=== PATIENT | male | born 1935 | race Caucasian/White ===

== ENCOUNTER 2020-01-26 08:25 | Emergency (ER) | payer MEDICARE, OTHER ==
[2020-01-26] MEDS ORDERED: Sodium Chloride 0.9% 10 ML Syringe FLUSH PRN (08:35)
[2020-01-26] MEDS ORDERED: Pantoprazole 40 MG Vial IVPUSH ONE (08:35)
[2020-01-26] MEDS ORDERED: Famotidine 20 MG/2 ML SDV IVPUSH ONE (08:35)
--- NOTE | 2020-01-26 08:35 | EDM.PDOC ---
ED HPI GENERAL MEDICAL PROBLEM - General Chief Complaint: General Stated Complaint: CONSTIPATION Time Seen by Provider: 01/26/20 08:29 Source of Information: Reports: Patient, Old Records ([facility] chart/EMR) History Limitations: Reports: No Limitations - History of Present Illness INITIAL COMMENTS - FREE TEXT/NARRATIVE: Patient was brought to the emergency room via private automobile by his for evaluation of a 3-day history of progressive constipation, including 6/10 initially bilateral lower quadrant and then diffuse generalized abdominal cramping. The patient did take OTC Ex-Lax and a stool softener on 01/22 with a normal bowel movement later that evening/shortly thereafter. Since that time, however, he has had some progressive anorexia, persistent constipation and only very small bowel movements on a daily basis. He did take a repeat dose of Ex- Lax yesterday however no medications for his symptoms this morning. No recent history of heartburn, nausea/emesis, diarrhea, melena, gross hematochezia, or any food intolerance, including fatty foods, etc., however note anorexia as above with no breakfast this morning. He did take his morning medications. The patient denies any chest pain/pressure, heart flutter, dizziness, orthostasis, orthopnea, diaphoresis, paresthesias, recent decreased exercise tolerance, or any other anginal-type symptoms. The patient also denies any recent fever, cough, wheezing, dyspnea, etc.. He does also complain of some nonspecific dysuria during the last 2 weeks with no gross hematuria, colic, or other UTI symptoms. Onset: Gradual Onset Date: 01/23/20 Duration: Constant, Getting Worse Location: Reports: Abdomen, Generalized. Denies: Head, Face, Neck, Chest, Back, Pelvis, Upper Extremity, Left, Upper Extremity, Right, Lower Extremity, Left, Lower Extremity, Right, Radiates to Quality: Reports: Ache, Stabbing Severity: Moderate Improves with: Reports: None Worsens with: Reports: None Context: Reports: Other (As above). Denies: Sick Contact, Trauma Associated Symptoms: Reports: Loss of Appetite. Denies: Confusion, Chest Pain, Cough, Diaphoresis, Fever/Chills, Headaches, Malaise, Nausea/Vomiting, Rash, Seizure, Shortness of Breath, Syncope, Weakness Abdominal Pain Score (Numeric/FACES): 6 - Related Data Allergies Allergy/AdvReac Type Severity Reaction Status Date / Time No Known Allergies Allergy Verified 01/26/20 08:35 Home Meds: Home Meds Amoxicillin/Potassium Clav [Augmentin 875-125 Tablet] 1 each PO BIDMEALS #20 tablet 01/26/20 [Rx] Aspirin [Adult Aspirin Regimen] 81 mg PO DAILY 01/26/20 [History] Cholecalciferol (Vitamin D3) [Vitamin D3] 250 mcg PO DAILY 01/26/20 [History] Ezetimibe [Zetia] 10 mg PO DAILY 01/26/20 [History] Irbesartan [Avapro] 150 mg PO DAILY 01/26/20 [History] Levothyroxine Sodium [Synthroid] 25 mcg PO DAILY 01/26/20 [History] Magnesium Oxide 400 mg PO QPM #30 tablet 01/26/20 [Rx] Mecobalamin [B12 Active] 1,000 mcg PO DAILY 01/26/20 [History] Vit C/Ascorb Sod/Multivit-Min [Emergen-C 500 mg Chewable Tab] 500 mg PO DAILY 01/26/20 [History] metroNIDAZOLE [Flagyl] 500 mg PO Q8H #30 tab 01/26/20 [Rx] Past Medical History HEENT History: Reports: Cataract, Hard of Hearing, Impaired Vision. Denies: Allergic Rhinitis, Glaucoma, Macular Degeneration, Otitis Media, Retinal Detachment Other HEENT History: Patient does not wear reading glasses. 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 Cardiovascular History: Reports: High Cholesterol, Hypertension. Denies: Afib, Aneurysm, Arrhythmia, Blood Clots/VTE/DVT, CAD, Cardiomyopathy, Heart Failure, Heart Murmur, ND, PVD, Syncope Respiratory History: Reports: Intubation, Previous. Denies: Asthma, Bronchitis, Recurrent, COPD, Intubation, Difficult, PE, Pneumonia, Recurrent, Pneumothorax, Sleep Apnea, TB Gastrointestinal History: Reports: Chronic Constipation, GERD, Other (See Belo w). Denies: Celiac Disease, Cholelithiasis, Chronic Diarrhea, Colon Polyp, Diverticulosis, Fecal Incontinence, Gastritis, GI Bleed, Hepatitis, Hiatal Hernia, Inflammatory Bowel Disease, Irritable Bowel Syndrome, Jaundice, Pancreatitis, PUD Other Gastrointestinal History: Umbilical hernia. Genitourinary History: Reports: BPH, Prostate Disorder, Other (See Below). Denies: Acute Renal Failure, Chronic Renal Insuffiency, Renal Calculus, Retention, Urinary, STD, Urinary Incontinence, UTI, Recurrent Other Genitourinary History: BPH with recent progressive PSA elevation during the last 3 years. Musculoskeletal History: Reports: Arthritis, Back Pain, Chronic, Neck Pain, Chronic, Osteoarthritis, Other (See Below). Denies: Amputation, Fracture, Gout, Osteoporosis, RA, SLE Other Musculoskeletal History: Mild scoliosis. Neurological History: Reports: Headaches, Chronic. Denies: Alzheimers Disease, Cerebral Aneurysms, Concussion, CVA, Head Trauma, Migraines, MS, Neuropathy, Peripheral, Parkinson's, Seizure, TIA Psychiatric History: Reports: Addiction, Anxiety, Depression, Other (See Below). Denies: Abuse, Victim of, ADD, ADHD, Psych Hospitalization(s), PTSD, Suicide Attempt, Suicidal Ideation Other Psychiatric History: History of alcohol abuse as below with no treatment required. Endocrine/Metabolic History: Reports: Hypothyroidism. Denies: Diabetes, Type I, Diabetes, Type II, Diabetes Mellitus, Type 3c, IDDM Hematologic History: Reports: None. Denies: Anemia, Blood Transfusion(s), Iron Deficiency Immunologic History: Denies: AIDS, HIV, SLE Oncologic (Cancer) History: Reports: Other (See Below). Denies: Colon, Hodgkin's Lymphoma, Lymphoma, Non-Hodgkin's Lymphoma, Squamous Cell Carcinoma Other Oncologic History: Right-sided renal cancer with nephrectomy as below with no radiation, chemotherapy, etc.. Recurrent unknown type of skin cancers. Dermatologic History: Reports: None. Denies: Eczema, Psoriasis - Infectious Disease History Infectious Disease History: Reports: Measles, Mumps. Denies: C-Difficile, Chicken Pox (Uncertain), Meningitis, Mononucleosis, MRSA, Rheumatic Fever, Rubella, Scarlet Fever, Shingles, TB, VRE - Past Surgical History Head Surgeries/Procedures: Reports: None HEENT Surgical History: Reports: Adenoidectomy, Cataract Surgery, Oral Surgery, Tonsillectomy, Other (See Below). Denies: Eye Surgery, Laser Surgery, LASIK, Myringotomy w Tube(s), Naso-Sinus Surgery Other HEENT Surgeries/Procedures: Tonsillectomy and adenoidectomy at about age 18. Bilateral cataract surgery in about 2013. Cardiovascular Surgical History: Reports: None. Denies: Varicose Respiratory Surgical History: Reports: None. Denies: Thoracentesis GI Surgical History: Reports: Appendectomy, Other (See Below). Denies: Cholecystectomy, Colonoscopy, EGD, Hernia, Abdominal, Hernia, Inguinal, Hernia Repair/Other, Polypectomy Other GI Surgeries/Procedures: Appendectomy at age 13. Flexible sigmoidoscopy in the 1990s. Male Surgical History: Reports: None. Denies: Circumcision, Prostate Biopsy, TURP-Transurethral Resection of Prostate, Vasectomy Endocrine Surgical History: Reports: None. Denies: Thyroid Biopsy Neurological Surgical History: Denies: C-Spine, Discectomy, Laminectomy, Lumbar Spine, Sacral Spine, Spinal Fusion, Thoracic Spine, Vertebroplasty Musculoskeletal Surgical History: Reports: None. Denies: Arthroscopic Procedure, Carpal Tunnel, Ganglion Cyst, Joint Replacement, ORIF, Shoulder Surgery Oncologic Surgical History: Reports: Other (See Below) Other Oncologic Surgeries/Procedures: Excision of multiple unknown type of skin cancers. Dermatological Surgical History: Reports: Skin Biopsy, Other (See Below) Other Dermatological Surgeries/Procedures: Skin biopsies for skin cancer as above. - Past Imaging History Past Imaging History: Reports: Carotid US (01/12/2017), CAT Scan (CT of the left leg and lumbar spine on 07/23/2017.), Stress Testing (Negative Cardiolite stress test on 08/18/2010 with ejection fraction of 72%.) Social & Family History - Tobacco Use Tobacco Use Status *Q: Never Tobacco User Tobacco Use Within Last Twelve Months: No Used Tobacco, but Quit: No Smoking Cessation Information Provided To Patient: No Second Hand Smoke Exposure: No Second Hand Smoke Education Provided: No - Caffeine Use Caffeine Use: Reports: Coffee (2 cups/week). Denies: Energy Drinks, Soda, Tea - Alcohol Use Alcohol Use History: Yes Days Per Week of Alcohol Use: 0 Number of Drinks Per Day: 0 Number of Drinks Per Day Comment: History of alcohol abuse between ages 17 and 39. Total Drinks Per Week: 0 Alcohol Use in Last Twelve Months: No - Recreational Drug Use Recreational Drug Use: No Drug Use in Last 12 Months: No Recreational Drug Type: Denies: Amphetamines (Speed), Cocaine, Heroin, Inhalants (Glues, Solvents, Aerosols), LSD (Acid), Marijuana/Hashish, Methamphetamine, Morphine, Oxycodone - Living Situation & Occupation Living situation: Reports: ( at age 16. 2 children), with Family () Occupation: Retired (Retired [employer] at age 61.) ED ROS GENERAL - Review of Systems Review Of Systems: Comprehensive ROS is negative, except as noted in HPI. ED EXAM, GENERAL - Physical Exam Exam: See Below Exam Limited By: No Limitations General Appearance: Alert, WD/WN, No Apparent Distress Eye Exam: Bilateral Eye: EOMI, Normal Inspection (No nystagmus), PERRL Ears: Normal External Exam, Normal Canal, Normal TMs, Hearing Loss (Mild bilateral presbycusis) Nose: Normal Inspection, Normal Mucosa, No Blood Throat/Mouth: Normal Inspection, Normal Lips, Normal Teeth (Occasional missing teeth with no caries), Normal Gums, Normal Oropharynx, Normal Voice, No Airway Compromise. No: Dysphagia, Perioral Cyanosis Head: Atraumatic, Normocephalic. No: Facial Swelling, Facial Tenderness, Sinus Tenderness Neck: Supple, Non-Tender, Full Range of Motion, Carotid Bruit (Mild bilateral carotid bruits). No: Lymphadenopathy (L), Lymphadenopathy (R), Thyromegaly Respiratory/Chest: No Respiratory Distress, Lungs Clear, Normal Breath Sounds, No Accessory Muscle Use, Chest Non-Tender. No: Pleural Rub, Retractions Cardiovascular: Normal Peripheral Pulses, Regular Rate, Rhythm, No Edema, No Gallop, No JVD, No Murmur, No Rub. No: Gallop/S3, Gallop/S4, Friction Rub Peripheral Pulses: 2+: Radial (L), Radial (R), Dorsalis Pedis (L), Dorsalis Pedis (R) GI/Abdominal: No Organomegaly, No Abnormal Bruit, No Mass, Distended (Borderline), Tender (Mild to moderate left lower quadrant palpation pain), Abnormal Bowel Sounds (Mild diffuse increased bowel sounds nonhigh-pitched in nature), Hernia (1 cm nonincarcerated umbilical hernia). No: Guarding, Rigid, Rebound (Male) Exam: Deferred Rectal (Males) Exam: BPH (Moderate to severe), Heme - Stool, Hemorrhoids (Grade 2 internal/external hemorrhoids). No: Black Stool, Bloody Stool, Fecal Impaction, Mass, Perirectal Abscess, Prostate Nodule (However moderate to severe BPH with exam difficult secondary to rectal stenosis), Rectal Fissure, Tenderness (No Puneet space tenderness) Back Exam: Full Range of Motion, Other (Mild scoliosis). No: CVA Tenderness (R), Muscle Spasm, Paraspinal Tenderness, Vertebral Tenderness Extremities: Normal Inspection, Normal Range of Motion, Non-Tender, No Pedal Edema, Normal Capillary Refill. No: Rajwinder's Sign Neurological: Alert, Oriented, CN II-XII Intact, Normal Cognition, Normal Gait, Normal Reflexes (Negative Babinski's), No Motor/Sensory Deficits Psychiatric: Normal Affect, Normal Mood Skin Exam: Warm, Dry, Intact, Normal Color, No Rash. No: Diaphoretic, Ecchymosis, Petechiae, Wound/Incision Course - Vital Signs Last Recorded V/S: Last Vital Signs Temp 36.8 C 01/26/20 08:26 Pulse 67 01/26/20 10:18 Resp 16 01/26/20 10:18 BP 132/76 01/26/20 10:18 Pulse Ox 98 01/26/20 10:18 Vital Signs - 24 hr 01/26/20 01/26/20 01/26/20 08:26 08:50 09:05 Temperature [ 36.8 C Temporal] Pulse, 71 68 68 Peripheral [ Pulse Oximetry] Respiratory 18 16 16 Rate Blood Pressure 165/88 H 137/81 128/80 [Left Upper Arm ] O2 Sat by Pulse 97 97 98 Oximetry 01/26/20 10:18 Temperature [ Temporal] Pulse, 67 Peripheral [ Pulse Oximetry] Respiratory 16 Rate Blood Pressure 132/76 [Left Upper Arm ] O2 Sat by Pulse 98 Oximetry - Orders/Labs/Meds Orders: Active Orders 24 hr Category Date Time Status Peripheral IV Care [RC] . DIRECTED Care 01/26/20 08:36 Active Nothing Per Oral Diet [DIET] Diet 01/26/20 Breakfast Active Abdomen Series w Chest 1V [CR] Stat Exams 01/26/20 08:35 Taken CULTURE URINE [RM] Stat Lab 01/26/20 09:40 Received Sodium Chloride 0.9% [Saline Flush] Med 01/26/20 08:35 Active 10 ml FLUSH ASDIRECTED PRN Obtain Past Medical Record [OM.PC] Urgent Oth 01/26/20 08:35 Active Peripheral IV Insertion Adult [OM.PC] Stat Oth 01/26/20 08:35 Ordered Resuscitation Status Stat Resus Stat 10/26/20 08:35 Ordered Medication Orders Sodium Chloride (Saline Flush) 10 ml FLUSH ASDIRECTED PRN PRN Reason: Keep Vein Open Last Admin: 01/26/20 09:00 Dose: 10 ml Documented by: DEANN Labs: Laboratory Tests 01/26/20 01/26/20 01/26/20 Range/Units 08:50 08:50 08:50 WBC 5.3 (4.0-10.2) K/uL RBC 4.91 (4.33-5.41) M/uL Hgb 15.5 (13.1-16.8) g/dL Hct 44.9 (39.0-49.0) % MCV 91.4 (84.0-98.0) fL MCH 31.6 (28.2-33.3) pg MCHC 34.5 (31.7-36.0) g/dL RDW 12.0 (11.2-14.1) % Plt Count 196 (150-350) K/uL Neut % (Auto) 69.9 (45.0-80.0) % Lymph % (Auto) 19.2 (10.0-50.0) % Edmunds % (Auto) 9.7 (2.0-14.0) % Eos % (Auto) 0.8 (0.0-5.0) % Baso % (Auto) 0.4 (0.0-2.0) % Neut # (Auto) 3.68 (1.40-7.00) K/uL Lymph # (Auto) 1.01 (0.50-3.50) K/uL Edmunds # (Auto) 0.51 (0.00-1.00) K/uL Eos # (Auto) 0.04 (0.00-0.50) K/uL Baso # (Auto) 0.02 (0.00-0.20) K/uL PT 10.9 (9.5-12.0) SEC INR 1.1 APTT 26.7 (24.5-32.8) SEC Sodium (136-145) mmol/L Potassium (3.5-5.1) mmol/L Chloride (98-107) mmol/L Carbon Dioxide (21.0-32.0) mmol/L BUN (7-18) mg/dL Creatinine (0.51-1.17) mg/dL Est Cr Clr Drug Dosing Estimated GFR (MDRD) mL/min Glucose (74-106) mg/dL Lactic Acid (0.4-2.0) mmol/L Uric Acid (2.6-7.2) mg/dL Calcium (8.5-10.1) mg/dL Magnesium (1.8-2.4) mg/dL Total Bilirubin (0.2-1.0) mg/dL AST (15-37) U/L ALT (12-78) U/L Alkaline Phosphatase (46-116) IU/L Total Protein (6.4-8.2) g/dL Albumin (3.4-5.0) g/dL Amylase 62 (25-115) U/L Lipase (73-393) U/L Specimen Type Urine Color Urine Appearance Urine pH (5.0-9.0) Ur Specific Mandan (1.005-1.030) Urine Protein (NEGATIVE) mg/dL Urine Glucose (UA) (NEGATIVE) mg/dL Urine Ketones (NEGATIVE) mg/dL Urine Occult Blood (NEGATIVE) Urine Nitrite (NEGATIVE) Urine Bilirubin (NEGATIVE) Urine Urobilinogen (0.2-1.0) E.U./dL Ur Leukocyte Esterase (NEGATIVE) Urine RBC /HPF Urine WBC /HPF Ur Epithelial Cells /LPF Urine Bacteria (NONE TO FEW) /HPF 01/26/20 01/26/20 01/26/20 Range/Units 08:50 08:50 09:40 WBC (4.0-10.2) K/uL RBC (4.33-5.41) M/uL Hgb (13.1-16.8) g/dL Hct (39.0-49.0) % MCV (84.0-98.0) fL MCH (28.2-33.3) pg MCHC (31.7-36.0) g/dL RDW (11.2-14.1) % Plt Count (150-350) K/uL Neut % (Auto) (45.0-80.0) % Lymph % (Auto) (10.0-50.0) % Edmunds % (Auto) (2.0-14.0) % Eos % (Auto) (0.0-5.0) % Baso % (Auto) (0.0-2.0) % Neut # (Auto) (1.40-7.00) K/uL Lymph # (Auto) (0.50-3.50) K/uL Edmunds # (Auto) (0.00-1.00) K/uL Eos # (Auto) (0.00-0.50) K/uL Baso # (Auto) (0.00-0.20) K/uL PT (9.5-12.0) SEC INR APTT (24.5-32.8) SEC Sodium 133 L (136-145) mmol/L Potassium 4.3 (3.5-5.1) mmol/L Chloride 97 L (98-107) mmol/L Carbon Dioxide 25.2 (21.0-32.0) mmol/L BUN 16 (7-18) mg/dL Creatinine 1.19 H (0.51-1.17) mg/dL Est Cr Clr Drug Dosing TNP Estimated GFR (MDRD) 58 mL/min Glucose 104 (74-106) mg/dL Lactic Acid 0.8 (0.4-2.0) mmol/L Uric Acid 5.6 (2.6-7.2) mg/dL Calcium 9.2 (8.5-10.1) mg/dL Magnesium 1.9 (1.8-2.4) mg/dL Total Bilirubin 0.8 (0.2-1.0) mg/dL AST 29 (15-37) U/L ALT 35 (12-78) U/L Alkaline Phosphatase 59 (46-116) IU/L Total Protein 7.3 (6.4-8.2) g/dL Albumin 3.8 (3.4-5.0) g/dL Amylase (25-115) U/L Lipase 101 (73-393) U/L Specimen Type Urinvoid Urine Color Yellow Urine Appearance Clear Urine pH 5.5 (5.0-9.0) Ur Specific Mandan 1.015 (1.005-1.030) Urine Protein Negative (NEGATIVE) mg/dL Urine Glucose (UA) Negative (NEGATIVE) mg/dL Urine Ketones Trace H (NEGATIVE) mg/dL Urine Occult Blood Negative (NEGATIVE) Urine Nitrite Negative (NEGATIVE) Urine Bilirubin Negative (NEGATIVE) Urine Urobilinogen 0.2 (0.2-1.0) E.U./dL Ur Leukocyte Esterase Negative (NEGATIVE) Urine RBC 0-5 /HPF Urine WBC 0-5 /HPF Ur Epithelial Cells Rare /LPF Urine Bacteria Few (NONE TO FEW) /HPF Urine specimen set up for culture and sensitivity Microbiology 01/26/20 08:45 Stool Occult Blood (CHANTELLE) - Final Stool / Feces NEGATIVE OCCULT BLOOD REFERENCE RANGE: NEGATIVE Meds: Medications Generic Name Dose Route Start Last Admin Trade Name Freq PRN Reason Stop Dose Admin Sodium Chloride 10 ml 01/26/20 08:35 01/26/20 09:00 Saline Flush FLUSH 10 ml ASDIRECTED PRN Administration Keep Vein Open Discontinued Medications Generic Name Dose Route Start Last Admin Trade Name Freq PRN Reason Stop Dose Admin Famotidine 40 mg 01/26/20 08:35 01/26/20 08:57 Pepcid IVPUSH 01/26/20 08:36 40 mg ONETIME ONE Administration Ceftriaxone Sodium 1 gm/ 100 mls @ 200 mls/hr 01/26/20 08:53 01/26/20 08:58 Sodium Chloride IV 01/26/20 09:22 200 mls/hr ONETIME ONE Administration Magnesium Citrate 0 ml 01/26/20 09:30 01/26/20 10:07 Citrate Of Magnesia PO 01/26/20 09:31 296 ml ONETIME ONE Administration Pantoprazole Sodium 40 mg 01/26/20 08:35 01/26/20 08:58 Protonix Iv IVPUSH 01/26/20 08:36 40 mg ONETIME ONE Administration Polyethylene Glycol 17 gm 01/26/20 09:30 01/26/20 10:07 Miralax PO 01/26/20 09:31 17 gm ONETIME ONE Administration - Radiology Interpretation Free Text/Narrative:: Acute abdominal x-ray shows mild aortic valve calcification and prominence of the proximal aortic arch, however no cardiomegaly, CHF, pulmonary infiltrates, pneumothorax, etc. Moderate diffuse stool noted with mildly increased nonspecific bowel gaseous pattern with no evidence of fluid levels, ileus, or free air. Moderate osteoarthritic change noted including in his back with some scoliosis and moderate coxarthrosis bilaterally. Multiple surgical clips noted on the right side consistent with previous right-sided nephrectomy. Departure - Departure Time of Disposition: 10:35 Disposition: Home, Self-Care 01 Condition: Good Clinical Impression: Hyponatremia, Renal insufficiency BPH (benign prostatic hyperplasia) Qualifiers: Lower urinary tract symptom presence: symptoms present Lower urinary tract symptom detail: urinary frequency Qualified Code(s): N40.1 - Benign prostatic hyperplasia with lower urinary tract symptoms Hypertension Qualifiers: Hypertension type: essential hypertension Qualified Code(s): I10 - Essential (primary) hypertension Hyperlipidemia Qualifiers: Hyperlipidemia type: unspecified Qualified Code(s): E78.5 - Hyperlipidemia, unspecified Osteoarthritis Qualifiers: Osteoarthritis location: multiple joints Osteoarthritis type: primary Qualified Code(s): M89.49 - Other hypertrophic osteoarthropathy, multiple sites Abdominal pain Qualifiers: Abdominal location: left lower quadrant Qualified Code(s): R10.32 - Left lower quadrant pain - Discharge Information *PRESCRIPTION DRUG MONITORING PROGRAM REVIEWED*: Not Applicable *COPY OF PRESCRIPTION DRUG MONITORING REPORT IN PATIENT NANDO: Not Applicable Prescriptions: Amoxicillin/Potassium Clav [Augmentin 875-125 Tablet] 1 each PO BIDMEALS #20 tablet metroNIDAZOLE [Flagyl] 500 mg PO Q8H #30 tab Magnesium Oxide 400 mg PO QPM #30 tablet Instructions: High-Fiber Diet, Constipation, Adult, [id number], Abdominal Pain, Adult, [id number], Diverticulosis Referrals: Viviana Chavarria PA [Primary Care Provider] - Forms: ED Department Discharge Additional Instructions: 1. Followup with your regular provider in 10-14 days as directed for reevaluation and recommended CBC, comprehensive metabolic panel, BNP, troponin I and magnesium level. Bring these discharge instructions with you to that visit with discussion of your abdominal pain and prostate disorder as below at that time. 2. [place] diet including encouragement of oral fluids such as sports drinks, etc. for 24-48 hours as directed. Advance to high-fiber, heart healthy, div erticulosis diet as discussed thereafter as tolerated. 3. Discuss further work-up of your chronic constipation and abdominal pain, including possible initial screening colonoscopy 4. Discuss further work-up for your prostate with PSA elevation including possible prostate biopsies 5. [place] diet including encouragement of oral fluids such as sports drinks, etc. for 24-48 hours as directed. Advance to regular diet as tolerated thereafter. 6. Immediately after this visit verify that your cellular telephone's voicemail has been activated and is empty. Also verify that your home telephone's an [employer] machine is operating properly and has space to receive messages. Note that it is sometimes necessary for us to be able to contact you at a later date to discuss your medical care. 7. Please remember that we are ALWAYS here for you and want to answer any questions you may have. Feel free to call the hospital any time and we call you back KURT. 8. Strict compliance with all medications including OTC magnesium oxide, etc. as discussed. Sepsis Event Note (ED) - Focused Exam Vital Signs: Vital Signs Temp Pulse Resp BP Pulse Ox 01/26/20 10:18 67 16 132/76 98 01/26/20 09:05 68 16 128/80 98 01/26/20 08:50 68 16 137/81 97 01/26/20 08:26 36.8 C 71 18 165/88 H 97 - Problem List & Annotations (1) Abdominal pain SNOMED Code(s): 26417666 Code(s): R10.9 - UNSPECIFIED ABDOMINAL PAIN Status: Acute Priority: High Onset Date: ~01/16/20 Annotation/Comment:: Progressive abdominal pain as above with moderate left lower quadrant abdominal pain by palpation likely secondary to his chronic constipation and/or possible diverticulosis with developing diverticulitis. Patient is afebrile with no leukocytosis. MiraLAX and magnesium citrate were given prior to patient's discharge. IV Rocephin and high-dose IV Protonix and Pepcid was given as GI prophylaxis with continuation of oral Augmentin and Flagyl on an outpatient basis. Dietary information was provided. Further work-up and close observation by his regular provider as per discharge instructions. He did have a distant flexible sigmoidoscopy in the as above with no initial screening colonoscopy to this point. No family history of colonic polyps or colon cancer. Note patient's current age. He has apparently been noncompliant with his previous magnesium oxide therapy during the last week with medication compliance strongly encouraged. Qualifiers: Abdominal location: left lower quadrant Qualified Code(s): R10.32 - Left lower quadrant pain (2) BPH (benign prostatic hyperplasia) SNOMED Code(s): 337555720 Code(s): N40.0 - BENIGN PROSTATIC HYPERPLASIA WITHOUT LOWER URINRY TRACT SYMP Status: Chronic Priority: High Annotation/Comment:: Note history of urinary frequency without evidence of significant UTI. By patient history he has had some progressive PSA elevation during the last 3 years with no prostate biopsy to this point. Prostate biopsy, urology referral, etc. may be advisable with this to be further discussed with his regular provider at follow-up. Note history of right-sided renal cancer with consideration of urine cytologies, etc. Qualifiers: Lower urinary tract symptom presence: symptoms present Lower urinary tract symptom detail: urinary frequency Qualified Code(s): N40.1 - Benign prostatic hyperplasia with lower urinary tract symptoms; R35.0 - Frequency of micturition (3) Hyperlipidemia SNOMED Code(s): 47568276 Code(s): E78.5 - HYPERLIPIDEMIA, UNSPECIFIED Status: Chronic Priority: Medium Annotation/Comment:: Currently under therapy. Qualifiers: Hyperlipidemia type: unspecified Qualified Code(s): E78.5 - Hyperlipidemia, unspecified (4) Hypertension SNOMED Code(s): 34361695 Code(s): I10 - ESSENTIAL (PRIMARY) HYPERTENSION Status: Chronic Priority: Medium Annotation/Comment:: Initially elevated in the emergency room secondary to discomfort, however improved prior to discharge without medical therapy. Continue to observe closely by his regular provider. Qualifiers: Hypertension type: essential hypertension Qualified Code(s): I10 - Essential (primary) hypertension (5) Hyponatremia SNOMED Code(s): 68780878 Code(s): E87.1 - HYPO-OSMOLALITY AND HYPONATREMIA Status: Acute Priority: Medium Onset Date: 01/26/20 Annotation/Comment:: Observe for now. No clinical evidence of CHF. (6) Osteoarthritis SNOMED Code(s): 198771337 Code(s): M19.90 - UNSPECIFIED OSTEOARTHRITIS, UNSPECIFIED SITE Status: Chronic Priority: Medium Annotation/Comment:: Stable by history. Qualifiers: Osteoarthritis location: multiple joints Osteoarthritis type: primary Qualified Code(s): M89.49 - Other hypertrophic osteoarthropathy, multiple sites (7) Renal insufficiency SNOMED Code(s): 896690879, 482731592 Code(s): N28.9 - DISORDER OF KIDNEY AND URETER, UNSPECIFIED Status: Acute Priority: Medium Onset Date: 01/26/20 Annotation/Comment:: Borderline renal insufficiency likely secondary to his age and previous right-sided nephrectomy. Continue to observe closely by his regular provider. - Problem List Review Problem List Initiated/Reviewed/Updated: Yes - My Orders Last 24 Hours: My Active Orders 01/26/20 Breakfast Nothing Per Oral Diet [DIET] 01/26/20 08:35 Abdomen Series w Chest 1V [CR] Stat Sodium Chloride 0.9% [Saline Flush] 10 ml FLUSH ASDIRECTED PRN Obtain Past Medical Record [OM.PC] Urgent Peripheral IV Insertion Adult [OM.PC] Stat Resuscitation Status Stat 01/26/20 08:36 Peripheral IV Care [RC] . DIRECTED 01/26/20 09:40 CULTURE URINE [RM] Stat - Assessment/Plan Last 24 Hours: My Active Orders 01/26/20 Breakfast Nothing Per Oral Diet [DIET] 01/26/20 08:35 Abdomen Series w Chest 1V [CR] Stat Sodium Chloride 0.9% [Saline Flush] 10 ml FLUSH ASDIRECTED PRN Obtain Past Medical Record [OM.PC] Urgent Peripheral IV Insertion Adult [OM.PC] Stat Resuscitation Status Stat 01/26/20 08:36 Peripheral IV Care [RC] . DIRECTED 01/26/20 09:40 CULTURE URINE [RM] Stat Assessment:: As above Plan: As above. Extensive precautions were given to the patient and his , who are in agreement with the treatment plan. See Patient Instructions for further treatment and plan.
[2020-01-26] MEDS ORDERED: cefTRIAXone 1 GM in Sodium Chloride 0.9% 100 ML IV ONE (08:53)
[2020-01-26 09:16] LABS: CHLORIDE,CL 97 mmol/L (98-107); SODIUM,NA 133 mmol/L (136-145)
[2020-01-26] MEDS ORDERED: Magnesium Citrate Solution 296 ML Bottle PO ONE (09:30)
[2020-01-26] MEDS ORDERED: Polyethylene Glycol 3350 Powder 17 GM Packet PO ONE (09:30)
[2020-01-26 09:42] LABS: PTT,PARTIAL THROMBOPLSTIN TIME 26.7 SEC (24.5-32.8)
== END 2020-01-26 10:35 | disposition home or self-care (01) ==
LOC: LL.ED 08:25
DX: R10.32 Left lower quadrant pain (principal); M41.9 Scoliosis, unspecified; E03.9 Hypothyroidism, unspecified; K42.9 Umbilical hernia without obstruction or gangrene; K64.1 Second degree hemorrhoids; N40.1 Benign prostatic hyperplasia with lower urinary tract symptoms; M89.49 Other hypertrophic osteoarthropathy, multiple sites; E78.5 Hyperlipidemia, unspecified; I10 Essential (primary) hypertension; E87.1 Hypo-osmolality and hyponatremia; N28.9 Disorder of kidney and ureter, unspecified; Z79.82 Long term (current) use of aspirin; Z79.899 Other long term (current) drug therapy
CPT/HCPCS: 36415; 74022; 80053; 81001; 82150; 82272; 83605; 83690; 83735; 84550; 85025; 85610; 85730; 87086; 96365; 96375; 99283; A9270; C9113; J0696; J3490; 99282

== ENCOUNTER 2020-02-12 10:18 | Day surgery (SDC) | payer MEDICARE, OTHER ==
[~2020-02-12 10:18] MED LIST: Lactated Ringers 1,000 ML IV SCH; Sodium Chloride 0.9% 10 ML Syringe FLUSH PRN
[2020-02-12] MEDS ORDERED: Propofol 200 MG/20 ML SDV ONE ×2 (10:50→11:50)
--- NOTE | 2020-02-12 11:34 | PCM.HPR ---
H & P Addendum review - H & P Addendum Review Date of Original H & P: 02/02/20 Date Reviewed: 02/12/20 Time Reviewed: 11:34 Patient was Examined: No Changes
--- NOTE | 2020-02-12 12:17 | PCM.OPNOTE ---
- General Post-Op/Procedure Note Date of Surgery/Procedure: 02/12/20 Operative Procedure(s): Colonoscopy with polypectomy Findings: 2 small polyps in Cecum Sig tics Pre Op Diagnosis: Abn Ct scan Post-Op Diagnosis: Same Anesthesia Technique: MAC Primary Surgeon: Michael Romero Anesthesia Provider: Heidy Christie EBL in mLs: 0 Complications: None Condition: Good
--- NOTE | 2020-02-12 13:09 | OR ---
Date of Procedure: 02/12/2020 PREOPERATIVE DIAGNOSIS: Recent abdominal pain with abnormal CT of the abdomen. POSTOPERATIVE DIAGNOSES: 1. Cecal polyps. 2. Sigmoid diverticulosis. PROCEDURES: Colonoscopy with polypectomy. ANESTHESIA: IV sedation. PROCEDURE: The patient was brought to the procedure room where he was placed on the left side and IV sedation administered. Digital rectal exam was performed which was normal other than a large prostate. The scope was advanced to the level of the cecum without difficulty. Cecal position was confirmed by identifying the ileocecal valve. Appendiceal orifice was not clearly identified. Prep was good and surfaces were well visualized in the cecum. He has 2 small polyps measuring 4 mm in diameter that were removed by biopsy forceps and sent as 1 specimen. The ascending, transverse, and descending colon were normal. Sigmoid colon has multiple large diverticula present. There is no evidence of ongoing diverticulitis. The rectum was normal and retroflexion was normal. Air was removed and the scope withdrawn. The patient tolerated the procedure well and returned to Recovery in stable condition. The patient will be notified of the pathology report when it returns. No further colonoscopies are necessary due to age. DAVE LIZ MD /[id number]
== END 2020-02-12 13:55 | disposition home or self-care (01) ==
LOC: LL.SDS 10:18
PROVIDERS: ATTEND Surgery
DX: D12.0 Benign neoplasm of cecum (principal); K57.30 Diverticulosis of large intestine without perforation or abscess without bleeding; K59.09 Other constipation; N40.0 Benign prostatic hyperplasia without lower urinary tract symptoms; E03.9 Hypothyroidism, unspecified; Z79.890 Hormone replacement therapy; Z85.528 Personal history of other malignant neoplasm of kidney; Z90.5 Acquired absence of kidney; Z01.812 Encounter for preprocedural laboratory examination; Z20.828 Contact with and (suspected) exposure to other viral communicable diseases; Z79.899 Other long term (current) drug therapy; Z79.82 Long term (current) use of aspirin
CPT/HCPCS: 00811; 88305; J2704; J7120; U0002

== ENCOUNTER 2020-02-19 12:47 | Day surgery (SDC) | payer MEDICARE, OTHER ==
[2020-02-19] MEDS ORDERED: Midazolam 1 MG/ML 2 ML SDV ONE ×2 (14:36→14:45)
[2020-02-19] MEDS ORDERED: Propofol 200 MG/20 ML SDV ONE (14:36)
--- NOTE | 2020-02-19 14:42 | PCM.PN ---
- General Info Date of Service: 02/19/20 - Review of Systems Systems Review Comment:: 84-year-old male referred for EGD. He has a history of abdominal bloating and early satiety. He feels a full pressure sensation in his upper abdomen. His recent colonoscopy was nondiagnostic for the symptoms. He is medically stable to proceed today. His recent history and physical is reviewed and no significant changes are noted. I have discussed the proposed EGD with the patient and he agrees to proceed excepting risks. - Patient Data Vitals - Most Recent: Last Vital Signs Temp 98.2 F 02/19/20 13:51 Pulse 99 02/19/20 13:51 Resp 60 H 02/19/20 13:51 BP 152/88 H 02/19/20 13:51 Pulse Ox 99 02/19/20 13:51 Weight - Most Recent: 79.379 kg Med Orders - Current: Current Medications Lactated Ringer's (Ringers, Lactated) 1,000 mls @ 125 mls/hr IV ASDIRECTED JESSE Last Admin: 02/19/20 13:49 Dose: 125 mls/hr Documented by: Sodium Chloride (Saline Flush) 10 ml FLUSH ASDIRECTED PRN PRN Reason: Keep Vein Open Discontinued Medications Midazolam HCl (Versed 1 Mg/Ml) Confirm Administered Dose 2 mg .ROUTE .STK-MED ONE Stop: 02/19/20 14:37 Propofol (Diprivan 20 Ml) Confirm Administered Dose 200 mg .ROUTE .STK-MED ONE Stop: 02/19/20 14:37 Sepsis Event Note - Focused Exam Vital Signs: Vital Signs Temp Pulse Resp BP Pulse Ox 02/19/20 13:51 98.2 F 99 60 H 152/88 H 99 - Problem List Review Problem List Initiated/Reviewed/Updated: Yes - Assessment Assessment:: Abdominal bloating - Plan Plan:: EGD
[2020-02-19] MEDS ORDERED: Glycopyrrolate 0.2 MG/ML SDV ONE (14:45)
--- NOTE | 2020-02-19 15:03 | PCM.OPNOTE ---
- General Post-Op/Procedure Note Date of Surgery/Procedure: 02/19/20 Operative Procedure(s): EGD with Biopsy Findings: Normal appearing EGD Pre Op Diagnosis: Abdominal Bloating Post-Op Diagnosis: Normal EGD Anesthesia Technique: MAC Primary Surgeon: Waqas Mendoza Pathology: Biopsies of Antrum and Proximal Stomach EBL in mLs: 3 Complications: None Condition: Good
--- NOTE | 2020-02-19 15:40 | OR ---
Date of Procedure: 02/19/2020 PREOPERATIVE DIAGNOSIS: Abdominal bloating. POSTOPERATIVE DIAGNOSIS: Normal upper endoscopy. OPERATION PERFORMED: Esophagogastroduodenoscopy with biopsy. INDICATIONS FOR SURGERY: This 84-year-old male has been having some symptoms of upper abdominal bloating. Recent colonoscopy was nondiagnostic for these symptoms. He is referred for upper endoscopy. FINDINGS: Structures viewed during upper endoscopy appeared normal. There was no visible signs of inflammation, ulcers, tumors, or strictures seen. DESCRIPTION OF PROCEDURE: The patient was taken to the operating room. He was given intravenous sedation, and with him in the left lateral decubitus position, the Olympus gastroscope was advanced through a mouth guard into the oral cavity. Under direct visualization, the scope was advanced through the hypopharynx and into the esophagus. The scope was advanced down through the esophagus, stomach, and into the duodenum, where examination to the fourth portion was performed. The duodenum appeared normal with no visible signs of inflammation or narrowing. After the duodenum had been examined, the scope was withdrawn back into the stomach where full examination including retroflexed examination of the fundus was carried out. Because of the patient's symptoms, random biopsies were taken in the antrum as well as in the proximal stomach to rule out H. pylori. The GE junction and esophagus were then re-examined as the scope was withdrawn, and after the examination had been completed, the scope was removed and the patient was taken from the operating room in satisfactory condition. ESTIMATED BLOOD LOSS: 3 mL. COMPLICATIONS: None. PROGNOSIS: Good. DAVE Mendoza MD /[id number]
== END 2020-02-19 16:37 | disposition home or self-care (01) ==
LOC: LL.SDS 12:47
PROVIDERS: ATTEND Surgery
DX: K29.50 Unspecified chronic gastritis without bleeding (principal); K21.9 Gastro-esophageal reflux disease without esophagitis; Z79.899 Other long term (current) drug therapy; Z79.82 Long term (current) use of aspirin; Z01.812 Encounter for preprocedural laboratory examination; Z20.828 Contact with and (suspected) exposure to other viral communicable diseases
CPT/HCPCS: 00731; 43239; 88305; 88342; J2250; J3490; J7120; U0002

== ENCOUNTER 2020-10-06 08:17 | Emergency (ER) | payer MEDICARE, OTHER ==
[2020-10-06] MEDS ORDERED: Sodium Chloride 0.9% 10 ML Syringe FLUSH PRN (08:28)
[2020-10-06] MEDS ORDERED: Sodium Chloride 0.9% 500 ML IV SCH (09:15)
--- NOTE | 2020-10-06 11:22 | EDM.PDOC ---
ED HPI GENERAL MEDICAL PROBLEM - General Chief Complaint: Cardiovascular Problem Stated Complaint: Hypertension Time Seen by Provider: 10/06/20 08:58 Source of Information: Reports: Patient, Family - History of Present Illness INITIAL COMMENTS - FREE TEXT/NARRATIVE: Romel is an 85 y/o male who comes to the ER with complaints of elevated BP. He has been checking his BPs at home and the diastolic was in the 100s today. He has been having issues with his BP and working with his PCP to get it controlled. His PCP could not get him in today to be seen so he came to the ER. He also has just not felt well the last week or so. He does admit to urinating in small frequent amounts. - Related Data Allergies Allergy/AdvReac Type Severity Reaction Status Date / Time No Known Allergies Allergy Verified 10/06/20 08:41 Home Meds: Home Meds Aspirin [Adult Aspirin Regimen] 81 mg PO DAILY 01/26/20 [History] Ezetimibe [Zetia] 10 mg PO BEDTIME 01/26/20 [History] Irbesartan [Avapro] 150 mg PO Q12HR 01/26/20 [History] Levothyroxine Sodium [Synthroid] 25 mcg PO DAILY 01/26/20 [History] Magnesium Oxide 400 mg PO QPM #30 tablet 01/26/20 [Rx] Mecobalamin [B12 Active] 1,000 mcg PO DAILY 01/26/20 [History] Ascorbate Calcium [Vitamin C] 500 mg PO DAILY 02/12/20 [History] Cholecalciferol (Vitamin D3) [Vitamin D3] 1,000 unit PO DAILY 02/12/20 [History] Tamsulosin HCl [Flomax] 0.4 mg PO DAILY@1200 02/12/20 [History] Cyanocobalamin (Vitamin B12) [Vitamin B12] 1,000 mcg PO DAILY 10/06/20 [History] Docosahexaenoic Acid/Epa [Fish Oil Concentrate Softgel] 1 cap PO DAILY 10/06/20 [History] Garlic 1,000 mg PO DAILY 10/06/20 [History] Glucosamine/D3/Boswellia Evon [Osteo Bi-Flex Caplet] 1 each PO DAILY 10/06/20 [History] Past Medical History HEENT History: Reports: Cataract Other HEENT History: Patient does not wear reading glasses. 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 Cardiovascular History: Reports: Hypertension Respiratory History: Reports: Intubation, Previous Gastrointestinal History: Reports: Colon Polyp, GERD Other Gastrointestinal History: Umbilical hernia. Genitourinary History: Reports: BPH, Prostate Disorder, Renal Disease, Other (See Below) Other Genitourinary History: BPH with recent progressive PSA elevation during the last 3 years. Right kidney removed Musculoskeletal History: Reports: Arthritis Other Musculoskeletal History: Mild scoliosis. Neurological History: Reports: Headaches, Chronic Psychiatric History: Reports: Anxiety Other Psychiatric History: History of alcohol abuse as below with no treatment required. Endocrine/Metabolic History: Reports: Hypothyroidism Hematologic History: Reports: None Oncologic (Cancer) History: Reports: Other (See Below) Other Oncologic History: left kidney caner Dermatologic History: Reports: None - Infectious Disease History Infectious Disease History: Reports: Measles, Mumps - Past Surgical History Head Surgeries/Procedures: Reports: None HEENT Surgical History: Reports: Cataract Surgery Other HEENT Surgeries/Procedures: Tonsillectomy and adenoidectomy at about age 18. Bilateral cataract surgery in about 2013. Cardiovascular Surgical History: Reports: None Respiratory Surgical History: Reports: None GI Surgical History: Reports: Appendectomy, Colonoscopy Other GI Surgeries/Procedures: Appendectomy at age 13. Flexible sigmoidoscopy in the . Male Surgical History: Reports: Other (See Below) Other Male Surgeries/Procedures: Right nephrectomy due to cancer Endocrine Surgical History: Reports: None Musculoskeletal Surgical History: Reports: None Oncologic Surgical History: Reports: Other (See Below) Other Oncologic Surgeries/Procedures: Excision of multiple unknown type of skin cancers. Dermatological Surgical History: Reports: Skin Biopsy, Other (See Below) - Past Imaging History Past Imaging History: Reports: Carotid US (01/12/2017), CAT Scan (CT of the left leg and lumbar spine on 07/23/2017.), Stress Testing (Negative Cardiolite stress test on 08/18/2010 with ejection fraction of 72%.) Social & Family History - Tobacco Use Tobacco Use Status *Q: Former Tobacco User Used Tobacco, but Quit: Yes Month/Year Tobacco Last Used: 1949 - Caffeine Use Caffeine Use: Reports: Coffee - Living Situation & Occupation Living situation: Reports: ( at age 16. 2 children), with Family () Occupation: Retired (Retired [employer] at age 61.) ED ROS GENERAL - Review of Systems Review Of Systems: See Below Constitutional: Reports: Malaise, Fatigue HEENT: Reports: No Symptoms Respiratory: Reports: No Symptoms Cardiovascular: Reports: No Symptoms Endocrine: Reports: Fatigue GI/Abdominal: Reports: Decreased Appetite : Reports: Frequency Musculoskeletal: Reports: No Symptoms Skin: Reports: No Symptoms Neurological: Reports: No Symptoms Psychiatric: Reports: No Symptoms Hematologic/Lymphatic: Reports: No Symptoms Immunologic: Reports: No Symptoms ED EXAM, GENERAL - Physical Exam Exam: See Below General Appearance: Alert, WD/WN, No Apparent Distress (Elderly male, quietly lying on cart.) Eye Exam: Bilateral Eye: PERRL Ears: Hearing Grossly Normal Nose: Normal Inspection, Normal Mucosa Throat/Mouth: Normal Inspection, Normal Lips, Normal Voice Head: Atraumatic, Normocephalic Neck: Normal Inspection, Supple Respiratory/Chest: No Respiratory Distress, Lungs Clear, Chest Non-Tender Cardiovascular: Regular Rate, Rhythm, No Murmur GI/Abdominal: Normal Bowel Sounds, Soft, Distended (Male) Exam: Deferred Rectal (Males) Exam: Deferred Back Exam: Normal Inspection, Full Range of Motion Extremities: Normal Inspection, Normal Range of Motion, Non-Tender, No Pedal Edema, Normal Capillary Refill Neurological: Alert, Oriented, CN II-XII Intact, Normal Cognition, Normal Gait Psychiatric: Normal Affect, Normal Mood Skin Exam: Warm, Dry, Intact, Normal Color Lymphatic: No Adenopathy #1 Interpretation EKG Date: 10/06/20 Time: 08:30 Rhythm: NSR Rate (Beats/Min): 69 [place]: Normal P-Wave: Enlarged QRS: Normal ST-T: Normal QT: Normal EKG Interpretation Comments: NSR with 1st Degree AV Block Course - Vital Signs Text/Narrative:: 0858 The patient was seen by the DERRICK [employer]AT [employer]NER. Labs and EKG ordered. His BP was stable on arrival. Renal US scheduled as an OP procedure for later today, will obtain this while he is in the ER. 0910 Labs reviewed. Note UA neg, CBC neg, CRP=3.7, BUN=31, Spinner Frame=1.71, Fqisath=806, WYY=3948. Will give 500ml bolus NS to ensure full bladder for Renal US. 1115 Renal US Prelim results obtained. Notes severe distended bladder with moderate to severe hydronephrosis. Multiple renal cysts including 3.9cm and 4.1 cm as the two largest (See final report). Will place coats for Urinary Retention. Discussed with patient and his and he reports that he had stopped taking the Tamsulosin since he thought it was increasing his BP. [address] coats with multiple attempts. [employer]NER also attempted and unable to pass folet even after UroJet use. Discussed concern with patient and his family for need to empty bladder. He was given Tamsulosin 0.8mg po in the ER. 1230 [facility] contacted and case presented to Dr Flor in the ER and patient accepted for transfer. Will plan POV transfer. Note Renal US positive and will have PCP follow up for Nephrology referral. Last Recorded V/S: Last Vital Signs Temp 36.6 C 10/06/20 08:20 Pulse 74 10/06/20 10:45 Resp 18 10/06/20 10:45 BP 180/99 H 10/06/20 10:45 Pulse Ox 98 10/06/20 10:45 - Orders/Labs/Meds Orders: Active Orders 24 hr Category Date Time Status EKG Documentation Completion [RC] ASDIRECTED Care 10/06/20 08:27 Active EKG Documentation Completion [RC] STAT Care 10/06/20 09:05 Active Coats Catheter Insertion [Insert Urinary Catheter] [OM. Care 10/06/20 11:15 Ordered PC] Q24H Peripheral IV Care [RC] . DIRECTED Care 10/06/20 08:28 Active Urinary Catheter Assessment [RC] ASDIRECTED Care 10/06/20 11:10 Active Chest 1V Frontal [CR] Stat Exams 10/06/20 09:05 Taken Renal Comp [US] Stat Exams 10/06/20 09:22 Taken Sodium Chloride 0.9% [Normal Saline] 500 ml Med 10/06/20 09:15 Active IV .BOLUS Sodium Chloride 0.9% [Saline Flush] Med 10/06/20 08:28 Active 10 ml FLUSH ASDIRECTED PRN Peripheral IV Insertion Adult [OM.PC] Routine Oth 10/06/20 08:28 Ordered Medication Orders Sodium Chloride (Normal Saline) 500 mls @ 500 mls/hr IV .BOLUS JESSE Last Admin: 10/06/20 09:32 Dose: 500 mls/hr Documented by: MARK Sodium Chloride (Sodium Chloride 0.9% 10 Ml Syringe) 10 ml FLUSH ASDIRECTED PRN PRN Reason: Keep Vein Open Last Admin: 10/06/20 09:33 Dose: 10 ml Documented by: MARK Labs: Laboratory Tests 10/06/20 10/06/20 10/06/20 Range/Units 08:35 08:35 08:35 WBC 4.7 (4.0-10.2) K/uL RBC 4.41 (4.33-5.41) M/uL Hgb 13.8 (13.1-16.8) g/dL Hct 41.3 (39.0-49.0) % MCV 93.7 (84.0-98.0) fL MCH 31.3 (28.2-33.3) pg MCHC 33.4 (31.7-36.0) g/dL RDW 12.0 (11.2-14.1) % Plt Count 213 (150-350) K/uL Neut % (Auto) 74.2 (45.0-80.0) % Lymph % (Auto) 14.1 (10.0-50.0) % Wirt % (Auto) 9.6 (2.0-14.0) % Eos % (Auto) 1.9 (0.0-5.0) % Baso % (Auto) 0.2 (0.0-2.0) % Neut # (Auto) 3.48 (1.40-7.00) K/uL Lymph # (Auto) 0.66 (0.50-3.50) K/uL Wirt # (Auto) 0.45 (0.00-1.00) K/uL Eos # (Auto) 0.09 (0.00-0.50) K/uL Baso # (Auto) 0.01 (0.00-0.20) K/uL Sodium 143 (136-145) mmol/L Potassium 4.9 (3.5-5.1) mmol/L Chloride 104 (98-107) mmol/L Carbon Dioxide 28.2 (21.0-32.0) mmol/L BUN 31 H (7-18) mg/dL Creatinine 1.71 H (0.51-1.17) mg/dL Est Cr Clr Drug Dosing 31.01 mL/min Estimated GFR (MDRD) 38 mL/min Glucose 144 H (70-99) mg/dL Lactic Acid (0.4-2.0) mmol/L Calcium 9.3 (8.5-10.1) mg/dL Magnesium 2.6 H (1.8-2.4) mg/dL Total Bilirubin 0.5 (0.2-1.0) mg/dL AST 19 (15-37) U/L ALT 25 (12-78) U/L Alkaline Phosphatase 66 (46-116) IU/L Troponin I 0.011 (0.000-0.056) ng/mL C-Reactive Protein 3.7 H (<=0.9) mg/dL NT-Pro-B Natriuret Pep 1486 H (0-125) pg/mL Total Protein 7.5 (6.4-8.2) g/dL Albumin 3.5 (3.4-5.0) g/dL TSH, Ultra Sensitive 4.016 H (0.358-3.740) mIU/mL Specimen Type Urine Color Urine Appearance Urine pH (5.0-9.0) Ur Specific [place] (1.005-1.030) Urine Protein (NEGATIVE) mg/dL Urine Glucose (UA) (NEGATIVE) mg/dL Urine Ketones (NEGATIVE) mg/dL Urine Occult Blood (NEGATIVE) Urine Nitrite (NEGATIVE) Urine Bilirubin (NEGATIVE) Urine Urobilinogen (0.2-1.0) E.U./dL Ur Leukocyte Esterase (NEGATIVE) 10/06/20 10/06/20 Range/Units 08:35 09:20 WBC (4.0-10.2) K/uL RBC (4.33-5.41) M/uL Hgb (13.1-16.8) g/dL Hct (39.0-49.0) % MCV (84.0-98.0) fL MCH (28.2-33.3) pg MCHC (31.7-36.0) g/dL RDW (11.2-14.1) % Plt Count (150-350) K/uL Neut % (Auto) (45.0-80.0) % Lymph % (Auto) (10.0-50.0) % Wirt % (Auto) (2.0-14.0) % Eos % (Auto) (0.0-5.0) % Baso % (Auto) (0.0-2.0) % Neut # (Auto) (1.40-7.00) K/uL Lymph # (Auto) (0.50-3.50) K/uL Wirt # (Auto) (0.00-1.00) K/uL Eos # (Auto) (0.00-0.50) K/uL Baso # (Auto) (0.00-0.20) K/uL Sodium (136-145) mmol/L Potassium (3.5-5.1) mmol/L Chloride (98-107) mmol/L Carbon Dioxide (21.0-32.0) mmol/L BUN (7-18) mg/dL Creatinine (0.51-1.17) mg/dL Est Cr Clr Drug Dosing mL/min Estimated GFR (MDRD) mL/min Glucose (70-99) mg/dL Lactic Acid 1.1 (0.4-2.0) mmol/L Calcium (8.5-10.1) mg/dL Magnesium (1.8-2.4) mg/dL Total Bilirubin (0.2-1.0) mg/dL AST (15-37) U/L ALT (12-78) U/L Alkaline Phosphatase (46-116) IU/L Troponin I (0.000-0.056) ng/mL C-Reactive Protein (<=0.9) mg/dL NT-Pro-B Natriuret Pep (0-125) pg/mL Total Protein (6.4-8.2) g/dL Albumin (3.4-5.0) g/dL TSH, Ultra Sensitive (0.358-3.740) mIU/mL Specimen Type Urinblad Urine Color Yellow Urine Appearance Clear Urine pH 5.5 (5.0-9.0) Ur Specific [place] 1.015 (1.005-1.030) Urine Protein Negative (NEGATIVE) mg/dL Urine Glucose (UA) Negative (NEGATIVE) mg/dL Urine Ketones Negative (NEGATIVE) mg/dL Urine Occult Blood Negative (NEGATIVE) Urine Nitrite Negative (NEGATIVE) Urine Bilirubin Negative (NEGATIVE) Urine Urobilinogen 0.2 (0.2-1.0) E.U./dL Ur Leukocyte Esterase Negative (NEGATIVE) Meds: Medications Generic Name Dose Route Start Last Admin Trade Name Freheath PRN Reason Stop Dose Admin Sodium Chloride 500 mls @ 500 mls/hr 10/06/20 09:15 10/06/20 09:32 Normal Saline IV 500 mls/hr .BOLUS JESSE Administration Sodium Chloride 10 ml 10/06/20 08:28 10/06/20 09:33 Sodium Chloride 0.9% 10 Ml Syringe FLUSH 10 ml ASDIRECTED PRN Administration Keep Vein Open Discontinued Medications Generic Name Dose Route Start Last Admin Trade Name Freheath PRN Reason Stop Dose Admin Lidocaine HCl Confirm 10/06/20 12:07 Lidocaine 2% Hcl 11 Ml Jelly Filled Syringe Administered 10/06/20 12:08 Dose 11 ml .ROUTE .STK-MED ONE Tamsulosin HCl 0.8 mg 10/06/20 12:33 Tamsulosin 0.4 Mg Cap.Er PO 10/06/20 12:34 ONETIME ONE Departure - Departure Time of Disposition: 12:41 Disposition: DC/Tfer to [facility] 02 Reason for Transfer *Q: Other (Urology Consult) Condition: Good Clinical Impression: Acute urinary retention, Prostate enlargement, Renal cyst, Renal insufficiency Referrals: Viviana Chavarria PA [Primary Care Provider] - Forms: ED Department Discharge, Interfacility Transfer EMTALA Additional Instructions: -Transfer to [facility] ER via POV to Dr Victoria Sepsis Event Note (ED) - Evaluation Sepsis Screening Result: No Definite Risk - Focused Exam Vital Signs: Vital Signs Temp Pulse Resp BP Pulse Ox 10/06/20 10:45 74 18 180/99 H 98 10/06/20 09:35 67 174/92 H 10/06/20 09:20 66 170/83 H 10/06/20 09:05 68 162/85 H 10/06/20 08:50 70 15 151/83 H 95 10/06/20 08:35 68 154/88 H 10/06/20 08:20 36.6 C 75 18 185/86 H 97 - Problem List & Annotations (1) Acute urinary retention SNOMED Code(s): 662215841 Code(s): R33.8 - OTHER RETENTION OF URINE Status: Acute Current Visit: Yes Annotation/Comment:: -Note well over 1000ml on bladder scan and renal US. -Transfer to [facility] ER for consult to get bladder emptied (2) Prostate enlargement SNOMED Code(s): 892542665 Code(s): N40.0 - BENIGN PROSTATIC HYPERPLASIA WITHOUT LOWER URINRY TRACT SYMP Status: Acute Current Visit: Yes Annotation/Comment:: -Tamsulosin 0.8mg po given prior to transfer -Encouraged patient to stay on the meds. -Urology to see patient in ER with transfer and hopefull address enlarged Prostate (3) Renal cyst SNOMED Code(s): 654147847 Code(s): N28.1 - CYST OF KIDNEY, ACQUIRED Status: Acute Current Visit: Yes Annotation/Comment:: -Noted multiple renal cysts on US today. Will have PCP review and refer to Nephrology for for further care. (4) Renal insufficiency SNOMED Code(s): 998406799, 056893787 Code(s): N28.9 - DISORDER OF KIDNEY AND URETER, UNSPECIFIED Status: Acute Priority: Medium Current Visit: No Onset Date: 01/26/20 Annotation/Comment:: -BUN=31, Spinner Frame=1.7, seems stable. Will have PCP continue to monitor. (5) Elevated brain natriuretic peptide (BNP) level SNOMED Code(s): 135784482, 110643168 Code(s): R79.89 - OTHER SPECIFIED ABNORMAL FINDINGS OF BLOOD CHEMISTRY Status: Acute Current Visit: Yes (6) Elevated brain natriuretic peptide (BNP) level SNOMED Code(s): 378344325, 071064354 Code(s): R79.89 - OTHER SPECIFIED ABNORMAL FINDINGS OF BLOOD CHEMISTRY Status: Acute Current Visit: Yes Annotation/Comment:: -VMB=[id number] today. Has had this in the past. -May be contributing to his vague sx of malasie and fatigue. -PCP to monitor. - Problem List Review Problem List Initiated/Reviewed/Updated: Yes - My Orders Last 24 Hours: My Active Orders 10/06/20 08:27 EKG Documentation Completion [RC] ASDIRECTED 10/06/20 08:28 Peripheral IV Care [RC] . DIRECTED Sodium Chloride 0.9% [Saline Flush] 10 ml FLUSH ASDIRECTED PRN Peripheral IV Insertion Adult [OM.PC] Routine 10/06/20 09:05 EKG Documentation Completion [RC] STAT Chest 1V Frontal [CR] Stat 10/06/20 09:15 Sodium Chloride 0.9% [Normal Saline] 500 ml IV .BOLUS 10/06/20 09:22 Renal Comp [US] Stat 10/06/20 11:10 Urinary Catheter Assessment [RC] ASDIRECTED 10/06/20 11:15 Coats Catheter Insertion [Insert Urinary Catheter] [OM.PC] Q24H - Assessment/Plan Last 24 Hours: My Active Orders 10/06/20 08:27 EKG Documentation Completion [RC] ASDIRECTED 10/06/20 08:28 Peripheral IV Care [RC] . DIRECTED Sodium Chloride 0.9% [Saline Flush] 10 ml FLUSH ASDIRECTED PRN Peripheral IV Insertion Adult [OM.PC] Routine 10/06/20 09:05 EKG Documentation Completion [RC] STAT Chest 1V Frontal [CR] Stat 10/06/20 09:15 Sodium Chloride 0.9% [Normal Saline] 500 ml IV .BOLUS 10/06/20 09:22 Renal Comp [US] Stat 10/06/20 11:10 Urinary Catheter Assessment [RC] ASDIRECTED 10/06/20 11:15 Coats Catheter Insertion [Insert Urinary Catheter] [OM.PC] Q24H Assessment:: As above Plan: -Transfer to [facility] ER via POV
[2020-10-06] MEDS ORDERED: Lidocaine 2% HCl 11 ML Jelly Filled Syringe ONE (12:07)
[2020-10-06] MEDS ORDERED: Tamsulosin 0.4 MG Cap.ER PO ONE (12:33)
== END 2020-10-06 13:05 ==
LOC: LL.ED 08:17
DX: I12.9 Hypertensive chronic kidney disease with stage 1 through stage 4 chronic kidney disease, or unspecified chronic kidney disease (principal); N18.9 Chronic kidney disease, unspecified; N40.1 Benign prostatic hyperplasia with lower urinary tract symptoms; R33.9 Retention of urine, unspecified; N28.1 Cyst of kidney, acquired; E03.9 Hypothyroidism, unspecified; Z79.82 Long term (current) use of aspirin; Z79.899 Other long term (current) drug therapy
CPT/HCPCS: 51702; 71045; 76770; 80053; 81003; 83605; 83735; 83880; 84443; 84484; 85025; 86140; 93005; 93010; 99284; 99285-25; A9270-GY; J7040

== ENCOUNTER 2020-12-20 23:33 | Emergency (ER) | payer MEDICARE, OTHER ==
[2020-12-21 00:24] LABS: ANION GAP 12.1 meq/L (7-15)
[2020-12-21] MEDS ORDERED: Iopamidol 755 Mg/ML 100 ML Bottle IVPUSH ONE (00:46)
[2020-12-21] MEDS ORDERED: Apixaban 5 MG Tab PO ONE (01:48)
[2020-12-21] MEDS ORDERED: Azithromycin 500 MG in Sodium Chloride 0.9% 250 ML IV ONE (01:53)
[2020-12-21] MEDS ORDERED: cefTRIAXone 1 GM in Sodium Chloride 0.9% 100 ML IV ONE (01:54)
[2020-12-21] MEDS ORDERED: Prochlorperazine 10 MG/2 ML SDV IVPUSH ONE (01:55)
[2020-12-21] MEDS ORDERED: Morphine 2 MG/ML SYRINGE IVPUSH ONE (01:55)
--- NOTE | 2020-12-21 01:56 | EDM.PDOC ---
ED HPI GENERAL MEDICAL PROBLEM - General Chief Complaint: Flank Pain Stated Complaint: upper epigastric pain and right flank pain Time Seen by Provider: 12/20/20 23:36 Source of Information: Reports: Patient History Limitations: Reports: No Limitations - History of Present Illness INITIAL COMMENTS - FREE TEXT/NARRATIVE: Patient comes in with right lower chest pain that wraps around to his back that started this evening. Only complaint earlier was some neck discomfort on the right that for most part went away over course of day. Denies previous similar pain. Denies injury. No SOB. No cold/URI complaints. No cough. Denies nausea/emesis/bowel changes. 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 Gets Padgett changed monthly. No other reported acute changes. Hx renal cancer and removal of right kidney decades ago. Pain is worse when he lays down or takes a deep breath. - Related Data Allergies Allergy/AdvReac Type Severity Reaction Status Date / Time No Known Allergies Allergy Verified 12/20/20 23:34 Home Meds: Home Meds Ezetimibe [Zetia] 10 mg PO BEDTIME 01/26/20 [History] Irbesartan [Avapro] 150 mg PO Q12HR 01/26/20 [History] Levothyroxine Sodium [Synthroid] 25 mcg PO DAILY 01/26/20 [History] Magnesium Oxide 400 mg PO QPM #30 tablet 01/26/20 [Rx] Mecobalamin [B12 Active] 1,000 mcg PO DAILY 01/26/20 [History] Ascorbate Calcium [Vitamin C] 500 mg PO DAILY 02/12/20 [History] Cholecalciferol (Vitamin D3) [Vitamin D3] 1,000 unit PO DAILY 02/12/20 [History] Tamsulosin HCl [Flomax] 0.4 mg PO DAILY@1200 02/12/20 [History] Cyanocobalamin (Vitamin B12) [Vitamin B12] 1,000 mcg PO DAILY 10/06/20 [History] Docosahexaenoic Acid/Epa [Fish Oil Concentrate Softgel] 1 cap PO DAILY 10/06/20 [History] Garlic 1,000 mg PO DAILY 10/06/20 [History] Glucosamine/D3/Boswellia Evon [Osteo Bi-Flex Caplet] 1 each PO DAILY 10/06/20 [History] Apixaban [Eliquis] 5 mg PO DAILY #36 tablet 12/21/20 [Rx] Azithromycin [Zithromax] 250 mg PO DAILY #6 tablet 12/21/20 [Rx] traMADol HCl [Tramadol HCl] 50 mg PO Q6H PRN #15 tablet 12/21/20 [Rx] Past Medical History HEENT History: Reports: Cataract Other HEENT History: Patient does not wear reading glasses. 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 Cardiovascular History: Reports: Hypertension Respiratory History: Reports: Intubation, Previous Gastrointestinal History: Reports: Colon Polyp, GERD Other Gastrointestinal History: Umbilical hernia. Genitourinary History: Reports: BPH, Prostate Disorder, Renal Disease, Other (See Below) Other Genitourinary History: BPH with recent progressive PSA elevation during the last 3 years. Right kidney removed Musculoskeletal History: Reports: Arthritis Other Musculoskeletal History: Mild scoliosis. Neurological History: Reports: Headaches, Chronic Psychiatric History: Reports: Anxiety Other Psychiatric History: History of alcohol abuse as below with no treatment required. Endocrine/Metabolic History: Reports: Hypothyroidism Hematologic History: Reports: None Oncologic (Cancer) History: Reports: Other (See Below) Other Oncologic History: left kidney caner Dermatologic History: Reports: None - Infectious Disease History Infectious Disease History: Reports: Measles, Mumps - Past Surgical History Head Surgeries/Procedures: Reports: None HEENT Surgical History: Reports: Cataract Surgery Other HEENT Surgeries/Procedures: Tonsillectomy and adenoidectomy at about age 18. Bilateral cataract surgery in about 2013. Cardiovascular Surgical History: Reports: None Respiratory Surgical History: Reports: None GI Surgical History: Reports: Appendectomy, Colonoscopy Other GI Surgeries/Procedures: Appendectomy at age 13. Flexible sigmoidoscopy in the . Male Surgical History: Reports: Other (See Below) Other Male Surgeries/Procedures: Right nephrectomy due to cancer Endocrine Surgical History: Reports: None Musculoskeletal Surgical History: Reports: None Oncologic Surgical History: Reports: Other (See Below) Other Oncologic Surgeries/Procedures: Excision of multiple unknown type of skin cancers. Dermatological Surgical History: Reports: Skin Biopsy, Other (See Below) - Past Imaging History Past Imaging History: Reports: Carotid US (01/12/2017), CAT Scan (CT of the left leg and lumbar spine on 07/23/2017.), Stress Testing (Negative Cardiolite stress test on 08/18/2010 with ejection fraction of 72%.) Social & Family History - Tobacco Use Tobacco Use Status *Q: Never Tobacco User Second Hand Smoke Exposure: No - Caffeine Use Caffeine Use: Reports: Coffee - Recreational Drug Use Recreational Drug Use: No - Living Situation & Occupation Living situation: Reports: ( at age 16. 2 children), with Family () Occupation: Retired (Retired [employer] at age 61.) ED ROS GENERAL - Review of Systems Review Of Systems: Comprehensive ROS is negative, except as noted in HPI. ED EXAM, GENERAL - Physical Exam Exam: See Below Exam Limited By: No Limitations General Appearance: Alert, WD/WN, No Apparent Distress Eye Exam: Bilateral Eye: EOMI, PERRL Ears: Hearing Grossly Normal Nose: No: Nasal Deformity, Nasal Swelling, Nasal Drainage Throat/Mouth: Normal Lips, Normal Voice, No Airway Compromise Head: Atraumatic, Normocephalic Neck: Supple, Non-Tender, Full Range of Motion Respiratory/Chest: No Respiratory Distress, Lungs Clear, Normal Breath Sounds, Other (Some tenderness with palpation under right anterior costal margin) Cardiovascular: No Edema, No Murmur, Other (Episodic skipped beats. ) GI/Abdominal: Normal Bowel Sounds, Soft, No Distention, Other (some tenderness under anterior left costal margin as noted above) (Male) Exam: Deferred Rectal (Males) Exam: Deferred Back Exam: No: CVA Tenderness (L), CVA Tenderness (R), Muscle Spasm, Paraspinal Tenderness, Vertebral Tenderness Extremities: Non-Tender, Normal Capillary Refill Neurological: Alert, Oriented, Normal Cognition, No Motor/Sensory Deficits Psychiatric: Normal Affect, Normal Mood Skin Exam: Warm, Dry, Intact, Normal Color #1 Interpretation EKG Date: 12/21/20 Time: 05:12 Rhythm: Other (Sinus) Rate (Beats/Min): 69 [place]: Normal P-Wave: Present QRS: Normal ST-T: Normal QT: Normal Comparison: Change From Previous EKG (Has periodic dropped beats which were not present on last EKG) Course - Vital Signs Last Recorded V/S: Last Vital Signs Temp 37.3 C 12/20/20 23:35 Pulse 86 12/20/20 23:35 Resp 18 12/20/20 23:35 BP 166/96 H 12/20/20 23:35 Pulse Ox 94 L 12/20/20 23:35 - Orders/Labs/Meds Orders: Active Orders 24 hr Category Date Time Status Chest 2V [CR] Stat Exams 12/20/20 23:40 Taken PE Chest [Ang Chest] [CT] Stat Exams 12/21/20 00:39 Taken Labs: Laboratory Tests 12/20/20 12/20/20 12/20/20 Range/Units 23:50 23:50 23:50 WBC 9.5 (4.0-10.2) K/uL RBC 4.45 (4.33-5.41) M/uL Hgb 13.9 (13.1-16.8) g/dL Hct 40.5 (39.0-49.0) % MCV 91.0 (84.0-98.0) fL MCH 31.2 (28.2-33.3) pg MCHC 34.3 (31.7-36.0) g/dL RDW 12.3 (11.2-14.1) % Plt Count 189 (150-350) K/uL Neut % (Auto) 77.8 (45.0-80.0) % Lymph % (Auto) 9.4 L (10.0-50.0) % [place] % (Auto) 11.9 (2.0-14.0) % Eos % (Auto) 0.7 (0.0-5.0) % Baso % (Auto) 0.2 (0.0-2.0) % Neut # (Auto) 7.40 H (1.40-7.00) K/uL Lymph # (Auto) 0.89 (0.50-3.50) K/uL [place] # (Auto) 1.13 H (0.00-1.00) K/uL Eos # (Auto) 0.07 (0.00-0.50) K/uL Baso # (Auto) 0.02 (0.00-0.20) K/uL D-Dimer, Quantitative 1110 H (0-400) ng/mL Sodium 130 L D (136-145) mmol/L Potassium 4.6 (3.5-5.1) mmol/L Chloride 97 L (98-107) mmol/L Carbon Dioxide 25.5 (21.0-32.0) mmol/L Anion Gap 12.1 (7-15) meq/L BUN 22 H (7-18) mg/dL Creatinine 1.27 H (0.51-1.17) mg/dL Est Cr Clr Drug Dosing 41.75 mL/min Estimated GFR (MDRD) 54 mL/min Glucose 111 H (70-99) mg/dL Lactic Acid (0.4-2.0) mmol/L Calcium 9.1 (8.5-10.1) mg/dL Magnesium 2.3 (1.8-2.4) mg/dL Total Bilirubin 1.1 H (0.2-1.0) mg/dL AST 33 (15-37) U/L ALT 47 (12-78) U/L Alkaline Phosphatase 91 (46-116) IU/L Troponin I High Sens 24 (<=76) ng/L NT-Pro-B Natriuret Pep 1433 H (0-125) pg/mL Total Protein 7.3 (6.4-8.2) g/dL Albumin 3.5 (3.4-5.0) g/dL Amylase 61 (25-115) U/L Lipase 89 (73-393) U/L 12/20/20 Range/Units 23:50 WBC (4.0-10.2) K/uL RBC (4.33-5.41) M/uL Hgb (13.1-16.8) g/dL Hct (39.0-49.0) % MCV (84.0-98.0) fL MCH (28.2-33.3) pg MCHC (31.7-36.0) g/dL RDW (11.2-14.1) % Plt Count (150-350) K/uL Neut % (Auto) (45.0-80.0) % Lymph % (Auto) (10.0-50.0) % [place] % (Auto) (2.0-14.0) % Eos % (Auto) (0.0-5.0) % Baso % (Auto) (0.0-2.0) % Neut # (Auto) (1.40-7.00) K/uL Lymph # (Auto) (0.50-3.50) K/uL [place] # (Auto) (0.00-1.00) K/uL Eos # (Auto) (0.00-0.50) K/uL Baso # (Auto) (0.00-0.20) K/uL D-Dimer, Quantitative (0-400) ng/mL Sodium (136-145) mmol/L Potassium (3.5-5.1) mmol/L Chloride (98-107) mmol/L Carbon Dioxide (21.0-32.0) mmol/L Anion Gap (7-15) meq/L BUN (7-18) mg/dL Creatinine (0.51-1.17) mg/dL Est Cr Clr Drug Dosing mL/min Estimated GFR (MDRD) mL/min Glucose (70-99) mg/dL Lactic Acid 0.8 (0.4-2.0) mmol/L Calcium (8.5-10.1) mg/dL Magnesium (1.8-2.4) mg/dL Total Bilirubin (0.2-1.0) mg/dL AST (15-37) U/L ALT (12-78) U/L Alkaline Phosphatase (46-116) IU/L Troponin I High Sens (<=76) ng/L NT-Pro-B Natriuret Pep (0-125) pg/mL Total Protein (6.4-8.2) g/dL Albumin (3.4-5.0) g/dL Amylase (25-115) U/L Lipase (73-393) U/L Meds: Medications Discontinued Medications Generic Name Dose Route Start Last Admin Trade Name Freq PRN Reason Stop Dose Admin Apixaban 10 mg 12/21/20 01:48 12/21/20 02:12 Apixaban 5 Mg Tab PO 12/21/20 01:49 10 mg ONETIME ONE Administration Azithromycin 500 mg/ Sodium 250 mls @ 250 mls/hr 12/21/20 01:53 12/21/20 02:49 Chloride IV 12/21/20 02:52 250 mls/hr ONETIME ONE Administration Ceftriaxone Sodium 1 gm/ 100 mls @ 200 mls/hr 12/21/20 01:54 12/21/20 02:19 Sodium Chloride IV 12/21/20 02:23 200 mls/hr ONETIME ONE Administration Iopamidol 100 ml 12/21/20 00:46 12/21/20 01:22 Iopamidol 755 Mg/Ml 100 Ml Bottle IVPUSH 12/21/20 00:47 100 ml ONETIME ONE Administration Morphine Sulfate 2 mg 12/21/20 01:55 12/21/20 02:13 Morphine 2 Mg/Ml Syringe IVPUSH 12/21/20 01:56 2 mg ONETIME ONE Administration Prochlorperazine Edisylate 5 mg 12/21/20 01:55 12/21/20 03:17 Prochlorperazine 10 Mg/2 Ml Sdv IVPUSH 12/21/20 01:56 Not Given ONETIME ONE - Radiology Interpretation Free Text/Narrative:: Chest xray showed some mild changes right lower lung. CT ordered when DDimer noted to be elevated. Radiology noted right lower lobe infiltrate/effusion/enlarged hilar lymph nodes on CT. Additionally small emboli also noted in this area. Report received 0145. - Re-Assessments/Exams Free Text/Narrative Re-Assessment/Exam: 12/21/20 02:05 Labs and chest xray ordered. Normal WBC and Hgb. Na low at 130. Patient is always low per history. He reports that he has been told to increase Na intake before but does not like the associated swelling of lower legs. He prefers to not treat the low sodium. He and his deny any symptoms suggestive of hyponatremia. Creatinine 1.27 Normal lactic and troponin. ProBNP 1433. DDimer elevated. Chest xray showed possible infiltrate right lower lobe. CT ordered given the elevated DDimer and chest pain. Results as noted above. Patient will be started on antibiotics with first dose IV tonight. Also will be started on Eliquis for the PEs. Recommend recheck this Sunday with primary clinic to see how he is doing. Patient noted to have dropped beats on EKG. This was reviewed with from [facility]. It appears to be consistent with Mobitz Type 1 block. He recommended patient make routine follow up appointment with Cardiology to review the change. Previous EKG from several months ago did not show this. Departure - Departure Time of Disposition: 03:30 Disposition: Home, Self-Care 01 Condition: Good Clinical Impression: Pulmonary embolism on right, Hyponatremia, Mobitz I Right lower lobe pneumonia Qualifiers: Pneumonia type: due to unspecified organism Qualified Code(s): J18.9 - Pneumonia, unspecified organism - Discharge Information *PRESCRIPTION DRUG MONITORING PROGRAM REVIEWED*: Not Applicable *COPY OF PRESCRIPTION DRUG MONITORING REPORT IN PATIENT NANDO: Not Applicable Prescriptions: Apixaban [Eliquis] 5 mg PO DAILY #36 tablet traMADol HCl [Tramadol HCl] 50 mg PO Q6H PRN #15 tablet PRN Reason: Pain Azithromycin [Zithromax] 250 mg PO DAILY #6 tablet Instructions: Bleeding Precautions When on Anticoagulant Therapy, Pediatric, Pulmonary Embolism, Community-Acquired Pneumonia, Adult, [id number], Second- Degree Atrioventricular Block Referrals: Viviana Chavarria PA [Primary Care Provider] - Forms: ED Department Discharge Additional Instructions: Make follow up appointment with Viviana for this Sunday for recheck. Start Eliquis to treat the blood clots in the lung. This will increase risk of bleeding, and could cause a problem if you fall, etc. Take the next dose Sunday morning. Take Tramadol one every 6 hours to help with pain. You can also take Tylenol with it. Avoid Motrin/Aleve as they are hard on your kidney and you should avoid using them. Start Zithromax for treating the lung infection. We gave you a dose tonight. Take the next dose before you go to bed tonight. Make a routine follow up appointment with Cardiology to review your EKG from tonight. Have Viviana help you with that. Follow up otherwise as needed if you have problems/new concerns. Sepsis Event Note (ED) - Evaluation Sepsis Screening Result: No Definite Risk - My Orders Last 24 Hours: My Active Orders 12/20/20 23:40 Chest 2V [CR] Stat 12/21/20 00:39 PE Chest [Ang Chest] [CT] Stat - Assessment/Plan Last 24 Hours: My Active Orders 12/20/20 23:40 Chest 2V [CR] Stat 12/21/20 00:39 PE Chest [Ang Chest] [CT] Stat
--- NOTE | 2020-12-22 19:31 | PCM.SN.2 ---
- Free Text/Narrative Note: Patient had US of abdomen scheduled today as his called last evening and reported pt having more abdominal discomfort. It was noted that he had some tenderness just under right lower rib margin during ER exam. Results not yet available. Labs repeated. WBC mildly elevated at 12. Lactic acid normal. Na 128 (patient runs low/no complaints suggestive of symptomatic hyponatremia at this time). Creatinine a bit more elevated at 1.51 Amylase and Lipase normal. Call placed to patient's home and results discussed with patient and his . reports that patient is feeling better today. Pain improved. Eating and drinking well. No fevers/chills. Plan at this time is to have them continue with plan to follow up tomorrow with primary provider for recheck. Patient and advised he would benefit from repeat chest xray and labs tomorrow to see if antibiotic needs to be changed/assess response of pneumonia to current regimen. To follow up otherwise as needed if further problems develop. Time Documentation
== END 2020-12-21 04:00 | disposition home or self-care (01) ==
LOC: LL.ED 23:33
DX: I26.99 Other pulmonary embolism without acute cor pulmonale (principal); E87.1 Hypo-osmolality and hyponatremia; I44.1 Atrioventricular block, second degree; J18.9 Pneumonia, unspecified organism; I10 Essential (primary) hypertension; K21.9 Gastro-esophageal reflux disease without esophagitis; E03.9 Hypothyroidism, unspecified; Z79.899 Other long term (current) drug therapy
CPT/HCPCS: 36415; 71046; 71275; 80053; 82150; 83605; 83690; 83735; 83880; 84484; 85025; 85379; 93005; 93010; 96365; 96367; 96375; 99284; 99285-25; A9270-GY; J0456; J0696; J2270; J7050; Q9967